=== PATIENT | female | born 1995 | race Caucasian/White ===

== ENCOUNTER 2018-02-16 17:56 | Emergency (ER) | payer SELFPAY ==
[~2018-02-16] VITALS: Ht 160 cm; Wt 64.0 kg
[~2018-02-16 17:56] MED LIST: NAPROSYN500 MG PO; PERCOCET 5/325M1 TAB OR; PHENERGAN12.5 MG/TA PO; ROBITUSSI2 OR; ULTRAM50 M1 PO; ZITHROMAX250 MG PO; ZPAK OR
[2018-02-16] MEDS ORDERED: MOTRIN400 MG PO ×3 (19:32→19:43)
[2018-02-16 19:40] VITALS: BP 133/88
== END 2018-02-16 19:40 | disposition home or self-care (01) | DRG 605 ==
LOC: ED 17:56
DX: S60.221A Contusion of right hand, initial encounter (principal); W23.0XXA Caught, crushed, jammed, or pinched between moving objects, initial encounter; Y92.009 Unspecified place in unspecified non-institutional (private) residence as the place of occurrence of the external cause

== ENCOUNTER 2018-03-10 10:09 | Emergency (ER) | payer SELFPAY ==
[~2018-03-10] VITALS: Ht 160 cm; Wt 63.6 kg
[~2018-03-10 10:09] MED LIST changes: +MOTRIN400 MG PO
[2018-03-10 11:40] VITALS: BP 130/81
== END 2018-03-10 11:42 | disposition home or self-care (01) | DRG 563 ==
LOC: ED 10:09
DX: S93.401A Sprain of unspecified ligament of right ankle, initial encounter (principal); W01.0XXA Fall on same level from slipping, tripping and stumbling without subsequent striking against object, initial encounter; Y93.9 Activity, unspecified; Y92.003 Bedroom of unspecified non-institutional (private) residence as the place of occurrence of the external cause

== ENCOUNTER 2021-05-31 18:09 | Emergency (ER) | payer SELFPAY ==
[~2021-05-31] VITALS: Ht 160 cm; Wt 75.0 kg
[2021-05-31] MEDS ORDERED: IBUPROFEN600 MG PO (20:00)
[2021-05-31 20:06] VITALS: BP 159/91
== END 2021-05-31 20:15 | disposition home or self-care (01) | DRG 563 ==
LOC: ED 18:09
DX: S63.501A Unspecified sprain of right wrist, initial encounter (principal); S50.811A Abrasion of right forearm, initial encounter; W18.39XA Other fall on same level, initial encounter; Y93.89 Activity, other specified; W61.39XA Other contact with chicken, initial encounter

== ENCOUNTER 2022-10-27 19:33 | Emergency (ER) | payer MEDICAID ==
[~2022-10-27] VITALS: Ht 160 cm; Wt 71.4 kg
[~2022-10-27 19:33] MED LIST changes: +IBUPROFEN600 MG PO
[2022-10-27 21:35] VITALS: BP 150/98
== END 2022-10-27 21:44 | disposition home or self-care (01) ==
LOC: ED 19:33
DX: O9A.213 Injury, poisoning and certain other consequences of external causes complicating pregnancy, third trimester (principal); S82.831A Other fracture of upper and lower end of right fibula, initial encounter for closed fracture; W17.2XXA Fall into hole, initial encounter; Y92.007 Garden or yard of unspecified non-institutional (private) residence as the place of occurrence of the external cause; Z3A.30 30 weeks gestation of pregnancy

== ENCOUNTER 2022-12-10 20:38 | Emergency (ER) | payer MEDICAID ==
[~2022-12-10] VITALS: Ht 160 cm; Wt 73.6 kg
[2022-12-10] MEDS ORDERED: NORMODYNE/TRAN100 MG PO (20:47)
[2022-12-10] MEDS ORDERED: IRON325 M1 (20:47)
[2022-12-10 21:33] LABS: URINE BILIRUBIN - DIPSTICK NEGATIVE (NEGATIVE); URINE BLOOD DIPSTICK LARGE (NEGATIVE); URINE COLOR YELLOW; URINE GLUCOSE - DIPSTICK NEGATIVE (NEGATIVE); URINE KETONE NEGATIVE (NEGATIVE); URINE PROTEIN - DIPSTICK NEGATIVE (NEG-TRACE)
[2022-12-10 21:35] LABS: BASO% 0.3 % (0-3); EOS% 2.3 % (0-8); LYMPH% 10.6 % (15-41); MEAN CORPUSCULAR HGB 24.7 pG CALC (26.0-32.0); MEAN CORPUSCULAR HGB CONC 31.5 g/dL CAL (32.0-36.0); NEUT# 4.98 thou/uL (2.00-7.15); NEUT% 80.8 % (42-76); RED BLOOD COUNT 3.52 mill/uL (4.20-5.60); RED CELL DISTRI WIDTH 14.1 % (11.5-15.5)
[2022-12-10 21:36] LABS: HEMATOCRIT 27.6 % (37.0-47.0); HEMOGLOBIN 8.7 g/dl (12.0-16.0); MEAN CELL VOLUME 78.4 fL CALC (80.0-100.0)
[2022-12-10 21:42] LABS: URINE LEUK ESTERASE SMALL (NEGATIVE); URINE NITRITE - DIPSTICK NEGATIVE (Negative)
[2022-12-10 21:44] LABS: URINE BACTERIA FEW hpf; URINE MUCUS FEW hpf (NONE-FEW); URINE SQUAMOUS EPITHELIAL CELL FEW EPI/hpf (0-FEW); URINE WBC 0-2 WBC/hpf (0-5)
[2022-12-10 21:52] LABS: ANION GAP 14 (6-22 (CALC)); BILIRUBIN, TOTAL 0.4 mg/dL (0.02-1.3); BUN 5 mg/dL (7-17); BUN/CREATININE RATIO 8 (12-20 (CALC)); C-REACTIVE PROTEIN 5.8 mg/dL (0-0.9); CARBON DIOXIDE 22 mmol/l (22-30); CHLORIDE 104 mmol/l (95-108); CREATININE 0.6 mg/dL (0.5-1.0); GFR FOR AFR.AMER. > 60 ML/MIN (>=60 (CALC)); GFR OTHER RACES > 60 ML/MIN (>=60 (CALC)); MAGNESIUM 1.7 mg/dL (1.6-2.3); POTASSIUM 4.1 mmol/l (3.5-5.1); SODIUM 136 mmol/l (137-146); TOTAL PROTEIN 6.7 g/dL (6.3-8.2)
[2022-12-10 21:53] LABS: ALBUMIN 3.6 g/dL (3.2-5.0); ALKALINE PHOSPHATASE 132 u/l (38-126); SGOT/AST 37 u/l (14-36)
[2022-12-10 23:20] VITALS: BP 140/80
== END 2022-12-10 23:21 | disposition home or self-care (01) ==
LOC: ED 20:38
PROVIDERS: Family Medicine
DX: O86.89 Other specified puerperal infections (principal); R82.71 Bacteriuria; Z20.822 Contact with and (suspected) exposure to COVID-19